=== PATIENT | male | born 2000 | race Two or more races ===

== ENCOUNTER 2022-03-07 10:32 | Emergency (ER) | payer MEDICAID ==
[~2022-03-07] VITALS: Ht 172.7 cm; Wt 120.0 kg
[2022-03-07 11:02] VITALS: BP 148/97
[2022-03-07] MEDS ORDERED: KETOROLAC 60MG/2ML VIAL IM ONE (13:00)
[2022-03-07] MEDS ORDERED: DEXAMETHASONE 10 MG/ML VIAL IM ONE (13:00)
[2022-03-07] MEDS ORDERED: P20 MT (14:14)
[2022-03-07] MEDS ORDERED: IBUP-2028 MT (14:14)
[2022-03-07] MEDS ORDERED: AMOX1TAB16 MT (14:14)
== END 2022-03-07 14:47 | disposition home or self-care (01) ==
LOC: ER 11:00
DX: M54.2 Cervicalgia (principal); J02.9 Acute pharyngitis, unspecified
CPT/HCPCS: 70490; 87070; 87430; 96372; 99284; J1100; J1885

== ENCOUNTER 2024-07-03 10:37 | Emergency (ER) | payer MEDICAID, OTHER ==
[~2024-07-03] VITALS: Ht 175.3 cm; Wt 141.8 kg
[~2024-07-03 10:37] MED LIST: AMOX1TAB16 MT; IBUP-2028 MT; P20 MT
[2024-07-03 10:39] VITALS: O2SAT 99
[2024-07-03 10:43] VITALS: TEMP 36.7; O2SAT 95
[2024-07-03] MEDS ORDERED: METH-653 MT (11:54)
[2024-07-03 11:57] VITALS: BP 136/94; PULSE 100; RESP 18
[2024-07-03] MEDS: IBUPROFEN 600MG TABLET PO ONE (11:57)
== END 2024-07-03 12:11 | disposition home or self-care (01) ==
LOC: ER 10:37
DX: M54.59 Other low back pain (principal)
CPT/HCPCS: 99283